=== PATIENT | female | born 1980 | race Caucasian/White ===

== ENCOUNTER 2019-01-08 13:12 | Emergency (ER) | payer OTHER, MEDICAID ==
[~2019-01-08] VITALS: Ht 154.9 cm; Wt 65.8 kg
[2019-01-08] MEDS ORDERED: TOPAMAX50 MG PO (13:24)
[2019-01-08] MEDS ORDERED: KEFLEX500 M1 PO (14:20)
[2019-01-08] MEDS ORDERED: IBUPROFEN 800800 MG PO (14:20)
[2019-01-08 14:26] VITALS: BP 112/65
== END 2019-01-08 14:37 ==
LOC: M.ERS 13:12
DX: S99.821A Other specified injuries of right foot, initial encounter (principal); L03.031 Cellulitis of right toe; F17.210 Nicotine dependence, cigarettes, uncomplicated; Z88.5 Allergy status to narcotic agent; Z88.6 Allergy status to analgesic agent; Z91.018 Allergy to other foods; W22.8XXA Striking against or struck by other objects, initial encounter; Y93.89 Activity, other specified; Y92.89 Other specified places as the place of occurrence of the external cause; Y99.8 Other external cause status